=== PATIENT | male | born 1975 | race Caucasian/White ===

== ENCOUNTER 2017-09-21 21:49 | Emergency (ER) | payer OTHER ==
[~2017-09-21] VITALS: Ht 177.8 cm; Wt 80.0 kg
[2017-09-21 22:00] VITALS: PULSE 58; RESP 16; TEMP 98.7; O2SAT 98
[2017-09-22 02:32] VITALS: BP 151/90; PULSE 58; RESP 20; O2SAT 98
--- NOTE | 2017-09-22 03:01 | PD ---
HPI Chief Complaint: Psychiatric Symptoms Time Seen by Provider: 02:38 Travel History International Travel<30 days: No Contact w/Intl Traveler<30days: No Traveled to known affect area: No History of Present Illness HPI 42-year-old white male presents to emergency department as a Marchman act. The patient was allegedly attempting to enter a dwelling in the patient appeared to be intoxicated. The patient is unable to answer questions at this time due to his level of intoxication. FOR[facility]LY [facility] Past Medical History Narrative Medical Subdural hematoma, alcohol intoxication Cancer: No Cardiovascular Problems: Yes Endocrine: No Genitourinary: No Hypertension: Yes Immune Disorder: No Musculoskeletal: No Neurologic: No Psychiatric: No Reproductive: No Respiratory: No Tetanus Vaccination: < 5 Years Past Surgical History Surgical History: No Previous Surgery Social History Alcohol Use: Yes Tobacco Use: Yes Substance Use: Yes (Meth) Allergies-Medications (Allergen,Severity, Reaction): Coded Allergies: No Known Allergies (Unverified , 09/14/17) Reported Meds & Prescriptions Reported Meds & Active Scripts Active No Active Prescriptions or Reported Medications Review of Systems ROS Limitations: Intoxication Physical Exam Narrative GENERAL: Well-developed, well-nourished in no apparent distress. Nontoxic appearing. Smells of EtOH appears heavily intoxicated. He arouses to noxious stimuli but falls asleep readily HEAD: Patient has a hematoma to the right cheek which I suspect is old. Patient also has some blood on his lips and what appears to be fractures of tooth #8 and 9. EYES: Pupils equal round and reactive. Extraocular motions intact. No scleral icterus. No injection or drainage. ENT: Nose clear. Throat without erythema, tonsillar hypertrophy or exudate. Uvula midline. Airway patent. NECK: Trachea midline. Supple, nontender, moves head freely. No central bony tenderness or spasm. CARDIOVASCULAR: Regular rate and rhythm without murmurs, gallops, or rubs. RESPIRATORY: Clear to auscultation. Breath sounds equal bilaterally. No wheezes , rales, or rhonchi. GASTROINTESTINAL: Abdomen soft, non-tender, nondistended. No hepato-splenomegaly , or palpable masses. No guarding. EXTREMITIES: No clubbing, cyanosis, or edema. No joint tenderness. BACK: Nontender without deformity. No flank tenderness. NEUROLOGICAL: Intoxicated but arouses to noxious stimuli. Slurred speech. Data Data Last Documented VS Vital Signs Date Time Temp Pulse Resp B/P (MAP) Pulse Ox O2 Delivery O2 Flow Rate FiO2 09/22/17 02:32 58 20 151/90 (110) 98 Room Air 09/21/17 22:[address] Brain W/O Iv Contrast(Rout) (09/22/17 02:46) Ct Cerv Spine W/O Contrast (09/22/17 02:46) MDM Medical Decision Making Medical Screen Exam Complete: Yes Emergency Medical Condition: Yes Medical Record Reviewed: Yes Interpretation(s) Last [address] 09/22/17245 Signed Impressions: Service Date/Time: Friday, September 22, 2017 02:53 - CONCLUSION: 1. The previously noted small left-sided subdural hematoma has almost completely resolved. 2. No new areas of intracranial hemorrhage are demonstrated. 3. Otherwise, stable exam compared to the prior study. Edd Chau MD Cervical Spine CT 09/22/17245 Signed Impressions: Service Date/Time: Friday, September 22, 2017 02:55 - CONCLUSION: 1. No acute bony fracture. 2. No new or significant changes compared to the prior study from 09/14/2017. Edd Chau MD Differential Diagnosis Differential diagnoses: Alcohol intoxication, substance abuse, electrolyte abnormality, malingering Narrative Course The patient is heavily intoxicated. With review of the medical record indicates that he has had a subdural hematoma from a trauma approximately one week ago. The patient is unable to render any history this evening. We will obtain a repeat CAT scan of his head and neck today. The patient will be allowed to sleep it off here and will be monitored. CT scan of the head reveals no acute changes. He has resolving subdural. CT of the cervical spine is negative for trauma. Patient appears acutely intoxicated. He has what appears to be a recent fall or injury which she has sustained bruising to the right cheek, bleeding to the mouth and what appears to be superficial chipping of the central teeth. The patient will be allowed to sleep it off here once he exhibits sobriety the patient will be medically stable on discharge. This is intoxication Diagnosis Primary Impression: intoxication Patient Instructions: General Instructions Additional Instructions: Rest. Increase fluids. Avoid alcohol. Avoid illegal substances. Follow-up with [facility] for detox. Do not operate a car or any heavy machinery under the influence of alcohol or drugs. Follow-up with a medical doctor this week. Return to the ER for emergencies Med/Other Pt SpecificInfo: No Meds Exist/No RX given Scripts No Active Prescriptions or Reported Meds Disposition: 01 DISCHARGE HOME Condition: Stable Williams Marie Sep 22, 2017 03:01
--- NOTE | 2017-09-22 03:16 | RADRPT ---
EXAM DATE/TIME: 09/22/2017 02:53 [facility] COMPARISON: CT BRAIN W/O CONTRAST, September 15, 2017, 4:09. INDICATIONS : Trauma, fall. RADIATION DOSE: 56.35 CTDIvol (mGy) MEDICAL HISTORY : Non-responsive. SURGICAL HISTORY : Non-responsive. ENCOUNTER: Initial ACUITY: 1 day PAIN SCALE: Non-responsive LOCATION: cranial TECHNIQUE: Multiple contiguous axial images were obtained of the head. Using automated exposure control and adj ustment of the mA and/or kV according to patient size, radiation dose was kept as low as reasonably a chievable to obtain optimal diagnostic quality images. DICOM format image data is available electro nically for review and comparison. FINDINGS: Today's exam is compared to the prior study of 09/15/2017. The small left-sided subdural hematoma has d ecreased in size on today's study and there appears to be a small trace of residual blood in the left subdural space. Otherwise, the ventricles remain normal in size and midline in position. No new area s of acute intracranial hemorrhage are demonstrated. No mass effect or midline shift is seen. The pos terior fossa is stable. The calvarium is grossly intact. CONCLUSION: 1. The previously noted small left-sided subdural hematoma has almost completely resolved. 2. No new areas of intracranial hemorrhage are demonstrated. 3. Otherwise, stable exam compared to the prior study. Edd Chau MD on September 22, 2017 at 3:11 Board Certified Radiologist. This report was verified electronically.
--- NOTE | 2017-09-22 03:30 | RADRPT ---
EXAM DATE/TIME: 09/22/2017 02:55 [facility] COMPARISON: CT BRAIN W/O CONTRAST, September 22, 2017, 2:53. CT CERVICAL SPINE W/O CONTRAST, September 14, 2017, 9:2 7. INDICATIONS : Trauma, fall. RADIATION DOSE: 22.81 CTDIvol (mGy) ; Patient motion MEDICAL HISTORY : Non-responsive. SURGICAL HISTORY : Non-responsive. ENCOUNTER: Initial ACUITY: 1 day PAIN SCALE: Non-responsive LOCATION: neck TECHNIQUE: Volumetric scanning of the cervical spine was performed. Multiplanar reconstructions in the sagittal, coronal and oblique axial planes were performed. Using automated exposure control and adjustment o f the mA and/or kV according to patient size, radiation dose was kept as low as reasonably achievable to obtain optimal diagnostic quality images. DICOM format image data is available electronically f or review and comparison. FINDINGS: Today's examination is compared to the prior study from 09/14/2017. There continues to be stable primar y degenerative changes especially at C5-6 with disc space narrowing. There are stable degenerative ch anges involving the cervical spine. No acute bony fracture. There is mild curvature of the cervical s pine to the right. The odontoid process is intact. There is a stable left paracentral disc osteophyte complex at C5-6. There continues to be good alignment of cervical spine. No evidence of any spondylo listhesis. CONCLUSION: 1. No acute bony fracture. 2. No new or significant changes compared to the prior study from 09/14/2017. Edd Chau MD on September 22, 2017 at 3:22 Board Certified Radiologist. This report was verified electronically.
[2017-09-22 05:29] VITALS: BP 168/95; PULSE 58; RESP 20; O2SAT 99
== END 2017-09-22 08:43 | disposition home or self-care (01) ==
LOC: NEPD 21:49
DX: F10.129 Alcohol abuse with intoxication, unspecified (principal); S06.5X9D Traumatic subdural hemorrhage with loss of consciousness of unspecified duration, subsequent encounter; X58.XXXD Exposure to other specified factors, subsequent encounter; I10 Essential (primary) hypertension; Z72.0 Tobacco use; F15.90 Other stimulant use, unspecified, uncomplicated
CPT/HCPCS: 70450; 72125; 99285